=== PATIENT | male | born 1985 | race American Indian/Alaskan Native ===

== ENCOUNTER 2017-06-29 06:46 | Emergency (ER) | payer OTHER ==
[2017-06-29 06:58] VITALS: BP 128/92
[2017-06-29] MEDS: MOTRIN PO ONE (08:11)
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
== END 2017-06-29 09:06 | disposition home or self-care (01) ==
LOC: ED 06:46
DX: S39.012A Strain of muscle, fascia and tendon of lower back, initial encounter (principal); S13.4XXA Sprain of ligaments of cervical spine, initial encounter; S00.81XA Abrasion of other part of head, initial encounter; F17.200 Nicotine dependence, unspecified, uncomplicated; V49.49XA Driver injured in collision with other motor vehicles in traffic accident, initial encounter; Y93.89 Activity, other specified; Y92.89 Other specified places as the place of occurrence of the external cause; Y99.8 Other external cause status